=== PATIENT | female | born 1975 | race Caucasian/White ===

== ENCOUNTER 2020-12-02 16:48 | Outpatient (CLI) | payer OTHER, SELFPAY ==
--- NOTE | 2020-12-02 17:18 | XR_ITS ---
WS: [id number] Exam: XR chest 2V* [id number] Date/Time of Exam: 12/02/2020 5:46 PM Reason For Exam: DYSPNEA Comparison 01/14/2011. Findings: The lungs are clear and fully expanded. Costophrenic angles are sharp. No infiltrates. Bronchovascula r relief appears normal. Cardiac silhouette is unremarkable. Bony elements are intact. XR/XR chest 2V* [id number] IMPRESSION: Unremarkable chest radiograph.
== END 2020-12-02 16:49 | disposition home or self-care (01) ==
PROVIDERS: PCP Family Medicine; Visit Provider Family Medicine
DX: R06.00 Dyspnea, unspecified (principal)
CPT/HCPCS: 71046

== ENCOUNTER → 2021-04-23 08:11 | Outpatient (BNVA) | payer OTHER, SELFPAY | PROVIDERS: PCP Family Medicine; Referring Provider Family Medicine; Visit Provider Podiatrist Foot & Ankle Surgery | DX: M25.572 Pain in left ankle and joints of left foot (principal); M21.612 Bunion of left foot; M21.611 Bunion of right foot; M77.32 Calcaneal spur, left foot | CPT/HCPCS: 73630 ==

== ENCOUNTER → 2022-04-27 08:25 | Outpatient (BNVA) | payer OTHER, SELFPAY | PROVIDERS: PCP Family Medicine; Visit Provider Family Medicine | DX: Z00.00 Encounter for general adult medical examination without abnormal findings (principal) | CPT/HCPCS: 80053; 80061 ==

== ENCOUNTER 2022-05-07 10:12 | Outpatient (CLI) | payer OTHER, SELFPAY ==
--- NOTE | 2022-05-07 10:20 | MM_ITS ---
WS: [id number] Exam: [place] [id number] Date/Time of Exam: 05/07/2022 10:32 AM Reason For Exam: SCREENING VIEWS: MLO and CC views both breasts. 3D digital tomosynthesis is also included in this exam. Comparison made with prior exam of . Findings: There was no sign of mass, architectural distortion or suspicious calcification in either breast. He terogeneously dense MM/[place] [id number] Impression: BI-RADS: 2-Benign FOLLOW-UP: 1 Year Follow-up This mammogram was also analyzed by the Computer Aided Detection System [employer] Commissioned Sales Associate.
== END 2022-05-07 10:13 | disposition home or self-care (01) ==
PROVIDERS: PCP Family Medicine; Visit Provider Family Medicine
DX: Z12.31 Encounter for screening mammogram for malignant neoplasm of breast (principal)
CPT/HCPCS: 77063; 77067

== ENCOUNTER 2022-10-16 15:58 | Outpatient (CLI) | payer OTHER, SELFPAY ==
--- NOTE | 2022-10-16 16:00 | MR_ITS ---
WS: [id number] MRI LEFT KNEE NONCONTRAST TECHNIQUE: Axial PD, coronal PD fat sat, coronal PD, sagittal PD, and sagittal PD fat-sat images obta ined. CLINICAL INFORMATION: persistent left knee pain COMPARISON: None. FINDINGS: Distal quadriceps and patella tendons are intact. Normal ACL and PCL. Moderate chondromalacia patella . Normal medial and lateral patellar retinaculum. Grade III chondromalacia involving the medial and l ateral joint compartments advanced for patient this age. No subchondral edema. Normal lateral meniscus. Horizontal tear involving the posterior horn medial meniscus extending to th e articular surface. Blunting of the posterior horn. Meniscal tear extends to the meniscal root. Grade III chondromalacia patella. No subchondral edema. Normal medial and lateral patellar retinaculu m. Normal popliteus. Normal lateral collateral ligament. Normal biceps femoris. Small amount of fluid and edema deep to the medial collateral ligament consistent with grade 1-2 injury. MCL appears intac t. Parameniscal cysts along the posterior horn medial meniscus. Intercondylar ganglion cyst along the PCL. MR/MR knee LT wo con* [id number] IMPRESSION: 1. Normal ACL and PCL. 2. Horizontal tear involving the posterior horn medial meniscus extending to t he periphery and meniscal root. Associated loculated appearing meniscal cysts. 3. Grade III chondromalacia patella. No subchondral edema. 4. Fluid and edema along the MCL compatible with grade 1-2 injury. 5. Lobulated intercondylar ganglion cyst along the PCL measuring 10 x 7 mm. 6. Grade III chondromalacia involving the medial and lateral joint compartment s advanced for patient this age. No subchondral edema. Outbridge grading: grade III: partial-thickness cartilage loss with focal ulcer ation
== END 2022-10-16 15:59 | disposition home or self-care (01) ==
PROVIDERS: PCP Family Medicine; Visit Provider Family Medicine
DX: S83.242A Other tear of medial meniscus, current injury, left knee, initial encounter (principal); X58.XXXA Exposure to other specified factors, initial encounter; M22.42 Chondromalacia patellae, left knee; R60.0 Localized edema; M67.462 Ganglion, left knee
CPT/HCPCS: 73721

== ENCOUNTER → 2022-11-13 06:57 | Outpatient (BNVA) | payer OTHER, SELFPAY | PROVIDERS: PCP Family Medicine; Referring Provider Family Medicine; Visit Provider Student in an Organized Health Care Education/Training Program | DX: S83.242A Other tear of medial meniscus, current injury, left knee, initial encounter (principal); M94.262 Chondromalacia, left knee; M25.862 Other specified joint disorders, left knee; X58.XXXA Exposure to other specified factors, initial encounter | CPT/HCPCS: 73560; 73565 ==

== ENCOUNTER 2022-12-15 06:21 | Day surgery (SDC) | payer OTHER, SELFPAY ==
[2022-12-14 12:28] VITALS: BMI 31.3
[2022-12-15] VITALS (9 sets, daily range): BP systolic 116–153; BP diastolic 71–92; PULSE 67–101; RESP 12–19; TEMP 36.2–36.6; O2SAT 96–100
[2022-12-15] MEDS: sodium chloride 0.9% 1,000 ML 30 ML IV (06:52)
[2022-12-15] MEDS: acetaminophen 1,000 MG/100 ML PIGGYBACK 400 MG IV (06:53)
[2022-12-15] MEDS: ketorolac 30 mg/mL INJ IVP (06:54)
--- NOTE | 2022-12-15 07:09 | W.PM.OPSFHP ---
Same Day Surgery H&P Indication for Procedure/HPI DATE OF PROCEDURE: December 15, 2022 CHIEF COMPLAINT/INDICATIONFOR SURGICAL PROCEDURE: Left knee pain medial meniscus tear cyst, and chondromalacia Sustained a left knee injury. She has failed conservative treatment with cortisone back in the summer her pain is returned she has continued periods of instability as well as mechanical symptoms. PREOP DIAGNOSIS: Left knee, medial meniscus tear, cyst, chondromalacia PLANNED PROCEDURE: Operation Date: 12/15/22 08:00 Proposed Procedures p left knee D&S scope with medial meniscectomy vs repair & cyst decompression?69681 and [id number],S83.242A, M94.262(Left) - Hung Parham DO s Meniscectomy(Left) - Hung Parham DO Medications/Allergies* Home Medications Medication Instructions Recorded Confirmed Type No Known Home Medications 11/13/22 11/13/22 History Allergies/Adverse Reactions Allergy/AdvReac Type Severity Reaction Status Date / Time codeine Allergy Mild hives/rash/ Verified 12/15/22 06:39 haulucinati ons Current Medications: Generic Name Dose Route Start Last Admin Trade Name Freq PRN Reason Stop Dose Admin Sodium Chloride 1,000 mls @ 30 mls/hr 12/15/22 06:30 12/15/22 06:52 Sodium Chloride 0.9% IV 12/16/22 06:29 30 mls/hr .Q24H MYRIAM Administration Pertinent History/Comorbid Conditions* Medical History (Updated 11/13/22 @ 07:46 by Hung Parham DO) Chondromalacia, left knee Knee joint cyst Social History Smoking and tobacco status: never smoked Second hand smoke exposure: No Alcohol intake: unknown Adopted: No Caregiver/support person: No Lives independently: Yes Household members: family Housing: House Marital status: Unknown Pets and animals: Yes Pertinent Exam Findings alert, operative site marked and procedure specific exam findings There are no gross deformities of the hips or ankles. The range of motion of both hips and ankles are normal and no tenderness to palpation. Both knees show no effusion bilaterally. There is 5/5 flexion and extension of the knees against resistance. Gait was assessed and is normal. There is discrete tenderness to palpation over the medial compartment of the left knee. There is pain that is reproduced with McMurrays test, but no palpable click. There is no tenderness with patella mobilization or over the lateral compartment.? There is mild crepitus on patellar range of motion. There is a negative lachmans test and both knees are stable to varus and valgus stress testing. There is a negative anterior and posterior drawer. There is no significant varus or valgus malalignment. Recommendations Surgery/Procedure today Other Plans: OR today for left knee diagnostic and surgical arthroscopy with partial medial meniscectomy versus repair, cyst decompression, chondroplasty. She understands risk benefits complication alternatives surgical nonsurgical treatment options. Understanding risk of surgery she elects to proceed with surgery today. All questions answered. Coding Level of Care Code Acute Code for Chg Fwd
--- NOTE | 2022-12-15 07:21 | ANES.PREANE2 ---
Pre-Anesthetic Assessment Height/Weight: Height 1.7 m Weight 90.718 kg Temp Pulse Resp BP Pulse Ox O2 Del Method 97.5 F L 67 17 142/84 97 12/15/22 06:40 12/15/22 06:40 12/15/22 06:40 12/15/22 06:40 12/15/22 06:40 12/15/22 06:40 Preop Diagnosis: Left knee, medial meniscus tear, cyst, chondromalacia Operation Date: 12/15/22 08:00 Proposed Procedures p left knee D&S scope with medial meniscectomy vs repair & cyst decompression?48613 and 44578,S83.242A, M94.262(Left) - Hung Parham DO s Meniscectomy(Left) - Hung Parham DO Familial anesthetic complications: None Was Beta Dunia taken within 24 hours: N/A Was Clonidine taken within 24 hours: N/A Last intake: Intake Last Liquid Date 12/14/22 Last Liquid Time 20:00 Last Solid Date 12/14/22 Last Solid Time 20:00 Social No alcohol and No tobacco Exam alert, oriented x 3, clear to auscultation bilaterally and regular rate & rhythm Airway Mallampati: Class II Dentition: full History/ROS No significant complaints Anesthetic Plan ASA status: 1 Anesthesia: General and Regional (specify below) Risk of > 500 ml blood loss (7ml/kg in children): No Medications/Allergies Home Medications Medication Instructions Recorded Confirmed Last Taken Type No Known Home Medications 11/13/22 11/13/22 Unknown History Allergies Allergy/AdvReac Type Severity Reaction Status Date / Time codeine Allergy Mild hives/rash/ Verified 12/15/22 06:39 haulucinati ons Current Medications Generic Name Dose Route Start Last Admin Trade Name Freq PRN Reason Stop Dose Admin Sodium Chloride 1,000 mls @ 30 mls/hr 12/15/22 06:30 12/15/22 06:52 Sodium Chloride 0.9% IV 12/16/22 06:29 30 mls/hr .Q24H MYRIAM Administration PFSH Anesthesia Medical History (Updated 11/13/22 @ 07:46 by Hung Parham DO) Chondromalacia, left knee Knee joint cyst Social History Smoking and tobacco status: never smoked Second hand smoke exposure: No Alcohol intake: unknown Adopted: No Caregiver/support person: No Lives independently: Yes Household members: family Housing: House Marital status: Unknown Pets and animals: Yes Female Reproductive History Date of last menstrual period: 11/16/22 Data Anesthesia Cardiac Studies: No Data to Display
--- NOTE | 2022-12-15 07:33 | ANES.PROC ---
Anesthesia Procedures Procedure/Date: 12/15/22 Nerve Block ^: Nerve Block 1: Main Anesthesia: general anesthesia Time Out Performed: No Consent: requested by attending/covering physician, from patient, risks and benefits reviewed and patient agrees to proceed Nerve block location: adductor canal (L) Anesthesia monitors applied: pulse oximetry, EKG, BP cuff and oxygen Nerve block position: supine Anesthetic Used: ropivicaine 0.5% (30 ml) and with decadron (4 mg) Ultrasound used to: recognize landmarks and visualize and ID femerol nerve Nerve Stimulator Used?: No Interscalene/Femoral BLK: 4 stimuplex 21 g needle used for position and inplane approach, visualize local anesthetic spread and no vascular puncture identified Injection: neg aspiration of heme Patient Tolerated Procedure: well Complications: none
--- NOTE | 2022-12-15 07:37 | SUR.PREOP ---
0725-Block was performed by Dr Guerra in OPS to patient's left knee. Patient tolerated well.
[2022-12-15] MEDS: ceFAZolin 2,000 MG in sodium chloride 0.9% (plus) 50 ML 100 MG IV (09:21)
[2022-12-15] MEDS: lidocaine-epi 2% 20 mL INJ 40 ML INJECTION (10:09)
--- NOTE | 2022-12-15 10:17 | PM.OP2 ---
Brief Operative Note Date of procedure: 12/15/22 Pre-op diagnosis: Left knee medial meniscus tear, PCL cyst, chondromalacia Post-op diagnosis: other (Left knee medial meniscus tear, chondromalacia patellofemoral, lateral, medial compartments) Procedure Done: Left knee diagnostic and surgical arthroscopy with partial medial meniscectomy Left knee diagnostic and surgical arthroscopy extensive synovectomy of medial, lateral, patellofemoral compartments Left knee diagnostic and surgical arthroscopy chondroplasty medial and patellofemoral compartments Left knee diagnostic and surgical arthroscopy lateral femoral condyle microfracture Surgeon: Hung Parham Estimated blood loss (mL): 5 Complications: None Post-op Plan: Patient taken to PACU in stable condition recovering well dressing on in place clean dry and intact receive appropriate discharge structure as well as pain medication and DVT prophylaxis of aspirin. Plan to be partial weightbearing 30 to 50% for the next 2 weeks. Full range of motion of the left knee. We will follow-up with me in the office in 2 weeks. Patient understands agrees with current plan. Questions answered. Contact the office for any questions. Condition: stable Disposition: same day Coding Level of Care Code Acute Code for Catrinag Cristhian
--- NOTE | 2022-12-15 10:19 | P.PCN_ITS ---
PACU note Narrative: Patient taken to PACU in stable condition recovering well dressing on in place clean dry and intact distal pulses are palpable toes warm well- perfused brisk capillary refill less than 2 seconds patient able to wiggle toes plantarflex dorsiflex ankle sensation tact light touch distally. Exam: awake Disposition: discharged
--- NOTE | 2022-12-15 10:19 | PM.OP ---
Operative Report Date of procedure: December 15, 2022 Pre-op diagnosis: Preop Diagnosis Left knee, medial meniscus tear, cyst, chondromalacia Post-op diagnosis: Left knee medial meniscus tear Left knee medial compartment chondromalacia grade 2?3 Left knee extensive synovitis medial lateral patellofemoral compartments Left knee lateral compartment chondromalacia small focal area of grade 3 lateral femoral condyle and rest of compartment grade 1?2 Left knee patellofemoral compartment grade 2-3 chondromalacia Procedure done: Left knee diagnostic and surgical arthroscopy with partial medial meniscectomy Left knee diagnostic and surgical arthroscopy with medial and patellofemoral compartment chondroplasties Left knee diagnostic and surgical arthroscopy extensive synovectomy of medial lateral and patellofemoral compartments Left knee diagnostic and surgical arthroscopy with lateral femoral condyle microfracture Surgeon: Hung Parham DO Estimated blood loss: 5 mL No tourniquet IV fluids: 900 mL Complications: None Findings: See operative report narrative Condition: stable Disposition: same day Brief History: Patient presented to my office in the outpatient setting for evaluation of left knee pain. She presented with an MRI findings consistent with below IMPRESSION: ? 1.? Normal ACL and PCL. 2.? Horizontal tear involving the posterior horn medial meniscus extending to the periphery and meniscal root. Associated loculated appearing meniscal cysts. 3.? Grade III chondromalacia patella. No subchondral edema. 4.? Fluid and edema along the MCL compatible with grade 1-2 injury. 5.? Lobulated intercondylar ganglion cyst along the PCL measuring 10 x 7 mm. 6.? Grade III chondromalacia involving the medial and lateral joint compartments advanced for patient this age. No subchondral edema. ? Outbridge grading: grade III: partial-thickness cartilage loss with focal ulceration We talked in detail about her treatment options as far as nonoperative and operative intervention. We talked about the risk benefits complication alternatives to each treatment option. Ultimately given the concern for the extension of the meniscal tear into the meniscal root her younger age and goals of trying to preserve cartilage and better function of meniscus we talked about surgical intervention of the left knee diagnostic and surgical arthroscopy with partial medial meniscectomy versus repair, chondroplasty and possible cyst decompression. Understanding the risks with surgery this point time she elects proceed. All questions answered. Procedure: Procedure: Patient seen and evaluated in the preoperative holding area.? Consent was reviewed and signed with patient.? Correct extremity was then marked.? Patient seen evaluated Anesthesia Department once cleared for surgery patient was taken back to the operative suite.? Patient was transported onto the OR table in supine position.? All bony prominences well-padded patient was appropriate secured to the bed.? Once appropriately anesthetized a nonsterile tourniquet was applied to the left thigh.? The left lower extremity was then prepped and draped in standard orthopedic fashion.? Final timeout performed.? Patient received appropriate preoperative antibiotics. Patient received local anesthetic of lidocaine with epinephrine into the joint as well as around the portal sites.? No tourniquet was inflated during this case. A standard 2 portal vertical incision diagnostic and surgical arthroscopy of the left knee was performed in standard fashion.? Small stab incision made in the inferolateral portal introduced trocar and arthroscope into the suprapatellar pouch.? Suprapatellar pouch was subsequently visualized and found to have significant synovitis but no loose bodies.? Patient had noticeable significant infrapatellar fat pad and thickening hypertrophic within the patellofemoral compartment. ?The medial gutter was free of loose bodies I then introduced the arthroscope into the medial compartment.? Within the medial compartment I then established my inferior medial working portal utilizing spinal needle outside in technique.? Once established I then visualized our articular cartilage of the medial compartment with a valgus stress.? Patient was found to have grade 2?3 chondromalacia throughout the medial compartment most pronounced on the femoral condyle.? Next I inspected the meniscus.? With an arthroscopic probe arthroscopic probe was utilized to visual? all aspects of the meniscus.? Meniscal root was found to be intact however patient was found to have a complex flap tear of the posterior horn of the medial meniscus.? Given this would not be a good candidate for repair I subsequently utilizing basket forceps as well as arthroscopic shaver completed a partial medial meniscectomy to stable meniscal tissue.? I then utilized a thermal wand to anneal the edges to complete my partial medial meniscectomy. Next a introduced the arthroscope to the intercondylar notch.? ACL and PCL were intact.? Patient had significant thickening of the infrapatellar fat pad spanning into the medial and lateral compartments.? I then performed an extensive synovectomy with the arthroscopic shaver of the patellofemoral medial and lateral compartments as well as the intercondylar notch. Advance the scope into the retrocruciate space and no loose bodies were found as well as no visible access to the PCL cyst as result this was left alone and no cyst decompression was Performed. Next I introduced the arthroscope into the lateral compartment the lateral compartment was found to have grade I and II chondromalacia throughout except a focal less than 1 cm grade III chondromalacia defect was noted. I subsequently utilized the arthroscopic shaver to debride the weightbearing surface of this defect to stable articular cartilage tissue and then subsequently performed a microfracturing of this area for bone marrow stimulation and healing. The meniscus was inspected and found to be intact with no tear. Next of the arthroscope was placed into the lateral gutter and this was free of loose bodies.? Finally I reintroduced the arthroscope into the patellofemoral compartment.? The patellofemoral was found to have grade 2-3 chondromalacia.? I did have grade 3 underneath the patella and a thermal wand and shaver was used to perform a chondroplasty of the patella to stable articular tissue.? I utilized the arthroscopic shaver and thermal wand to perform chondroplasty of the trochlea as well. This was all performed to stable articular tissue. Next I used the arthroscopic shaver to complete my extensive synovectomy and debridement of the infrapatellar thickened and hypertrophic fat pad to have complete space of the patellofemoral compartment on the medial aspect.? Next I then switched the arthroscope to the medial working portal and visualized the extent extensive synovitis laterally and then introduced the arthroscopic shaver and completed my synovectomy.? This completed patient's diagnostic and surgical arthroscopy.? All fluid was suctioned from the joint.? Once again hemostasis was satisfactory.? All instruments were withdrawn.? Portal sites were closed with interrupted nylon suture.? Dressed with Xeroform 4 x 4's ABD Curlex and Randall wrap.? Patient was then subsequently awakened from anesthesia and taken to PACU in stable condition. Disposition: Patient taken to PACU in stable condition recovering well.? Will receive appropriate discharge structure as well as pain medication postoperatively as well as daily aspirin for DVT prophylaxis.? We will have patient follow-up with us in the office in 2 weeks.? We will keep patient partial weightbearing 30 to 50% because of microfracturing. Patient understands and agrees with current plan.? All questions answered.
--- NOTE | 2022-12-15 10:21 | PC.NURSE ---
awake. Oral airway removed
--- NOTE | 2022-12-15 14:35 | ANE.PACU2 ---
Inpatient post-anesthesia follow up: Airway intact: Yes Vital signs: Temperature 97.7 F Pulse Rate 95 Respiratory Rate 18 Blood Pressure 132/92 Pulse Oximetry 100 Oxygen Delivery Me thod Room Air Oxygen Flow Rate 8 Fraction of Inspir ed Oxygen Hydration adequate: Yes Nausea and vomiting: No Pain level: 1 Mental status: Baseline
[2022-12-16 09:33] LABS: OR HCG Qualitative Urine Negative (Negative)
== END 2022-12-15 11:25 | disposition home or self-care (01) ==
PROVIDERS: Anesthesiology; PCP Family Medicine; Visit Provider Student in an Organized Health Care Education/Training Program
PROC: (CPT 29870; principal; 2022-12-15 08:00)
PROC: (CPT 29876; 2022-12-15 08:00)
DX: S83.232A Complex tear of medial meniscus, current injury, left knee, initial encounter (principal); M94.262 Chondromalacia, left knee; M65.862 Other synovitis and tenosynovitis, left lower leg; M25.862 Other specified joint disorders, left knee; X58.XXXA Exposure to other specified factors, initial encounter
CPT/HCPCS: 29876; 29879; 29881; 81025; 84703; J0131; J0690; J1100; J1885; J2250; J2405; J2704; J2795; J3010; J7030

== ENCOUNTER 2022-12-30 00:06 | Emergency (ER) | payer OTHER, SELFPAY ==
[2022-12-30 00:18] VITALS: BP 153/88; PULSE 79; RESP 16; O2SAT 97; BMI 31.3
--- NOTE | 2022-12-30 00:23 | ED_ITS ---
HPI - General Adult General: Chief complaint: Urogenital-Female Stated complaint: chills; uti sx Time Seen by Provider: 12/30/22 00:11 Source: patient Mode of arrival: ambulatory Limitations: no limitations History of Present Illness: 47-year-old female states she has had some lower abdominal pain over the last 48 hours she states it is mild nature roughly 2-3 out of 10. She states she woke up tonight with some chills along with some dysuria concerned she has a UTI she did have a recent meniscal repair 2 weeks ago. Denies any vomiting or diarrhea denies any worsening proving factors. Associated symptoms: Deny chest pain, dyspnea, headache(s) or rash Review of Systems Const: Denies: fever(s), chills, body aches or change in appetite Eyes: Denies: blurry vision or eye discomfort ENMT: Denies: throat pain or dental pain Card: Denies: chest pain Resp: Denies: dyspnea GI: Reports: abdominal pain : Reports: dysuria Musc: Denies: neck pain or back pain Skin/Breast: Denies: rash Neuro: Denies: headache(s) Psych: Denies: depression [place]/Lymph: Denies: easy bruising All/Imm: Denies: urticaria PFSH ED PFSH: Medical History Chondromalacia, left knee Knee joint cyst Social History Smoking and tobacco status: never smoked Second hand smoke exposure: No Alcohol intake: unknown Adopted: No Caregiver/support person: No Lives independently: Yes Household members: family Housing: House Marital status: Unknown Pets and animals: Yes Physical Exam Const: COMMON NORMALS: no acute distress, patient oriented x3 and healthy ap pearing HENMT: COMMON NORMALS: normocephalic and atraumatic HEAD & SCALP: normocephalic and atraumatic Eye: COMMON NORMALS: Equal, round and reactive pupils present and EOMs intact bilaterally PUPIL: Yes Equal, round and reactive pupils present Neck/C-Spine: COMMON NORMALS: full ROM and supple Chest: COMMONS NORMALS: normal inspection of the chest and normal palpation of entire chest wall Resp: COMMON NORMALS: normal respiratory effort, No retractions, No use of accessory muscles and clear to auscultation bilaterally AUSCULTATION: clear to auscultation bilaterally Cardio: COMMON NORMALS: regular rate, regular rhythm and No murmurs present (Cardio) RATE: regular rate RHYTHM: regular rhythm GI: COMMON NORMALS: Normal to inspection, nondistended, normoactive bowel sounds present, Soft to palpation, non-tender and no masses PALPATION: Yes Soft to palpation Extremity: COMMON NORMALS: normal to inspection and full ROM Neuro: COMMON NORMALS: patient oriented x3, moves all extremities and no focal motor deficits Psych: COMMON NORMALS: mental status grossly normal, Normal thought process pr esent and cooperative THOUGHT PROCESS: Normal thought process present Skin: COMMON NORMALS: no rashes or lesions noted and no wounds GENERAL SKIN EXAM: no rashes or lesions noted Course Vital Signs: Vital signs: Vital Signs Temperature 97.9 F 12/30/22 00:49 Pulse Rate 75 12/30/22 00:49 Respiratory Rate 14 12/30/22 00:49 Blood Pressure 142/97 12/30/22 00:49 Pulse Oximetry 98 12/30/22 00:49 Oxygen Delivery Me thod 12/30/22 00:18 MDM - General Adult Medical Decision Making Patient presents here with urinary tract infection her pains improved she has no abdominal tenderness on exam no signs of a kidney stone white count is normal we will give her IV dose antibiotics along with Keflex she is to follow-up PCP and return if worsening she understands agrees to plan. Lab Data 12/30/22 00:44 12/30/22 00:44 Laboratory Results WBC 8.9 10^3/uL (4.0-10.0) 12/30/22 00:44 RBC 4.42 10^6/uL (4.1-5.3) 12/30/22 00:44 Hgb 13.3 g/dL (11.5-15.3) 12/30/22 00:44 Hct 39.4 % (37.0-47.0) 12/30/22 00:44 MCV 89.1 fl (81-99) 12/30/22 00:44 MCH 30.1 pg (28.0-34.0) 12/30/22 00:44 MCHC 33.8 g/dL (30.0-36.0) 12/30/22 00:44 RDW 12.1 % (12.1-15.1) 12/30/22 00:44 Plt Count 256 10^3/cmm (130-400) 12/30/22 00:44 MPV 11.1 fL (7.4-10.4) H 12/30/22 00:44 Neut % (Auto) 71.1 % 12/30/22 00:44 Lymph % (Auto) 19.8 % 12/30/22 00:44 [place] % (Auto) 7.5 % 12/30/22 00:44 Eos % (Auto) 1.1 % 12/30/22 00:44 Baso % (Auto) 0.4 % 12/30/22 00:44 Neut # (Auto) 6.33 10^3/uL (1.8-7.7) 12/30/22 00:44 Lymph # (Auto) 1.8 10^3/uL (0.8-4.8) 12/30/22 00:44 [place] # (Auto) 0.7 10^3/uL (0.2-0.9) 12/30/22 00:44 Eos # (Auto) 0.1 10^3/uL (0.0-0.8) 12/30/22 00:44 Baso # (Auto) 0.0 10^3/uL (0.0-0.1) 12/30/22 00:44 Nucleated RBC % (auto) 0 % 12/30/22 00:44 Nucleated RBCs # 0.0 /100WBC 12/30/22 00:44 Sodium 140 mmol/L (136-145) 12/30/22 00:44 Potassium 3.8 mmol/L (3.5-5.1) 12/30/22 00:44 Chloride 106 mmol/L (98-107) 12/30/22 00:44 Carbon Dioxide 23 mmol/L (22-29) 12/30/22 00:44 Anion Gap 14.8 (5-19) 12/30/22 00:44 BUN 19 mg/dL (6-20) 12/30/22 00:44 Creatinine 0.6 mg/dL (0.5-0.9) 12/30/22 00:44 GFR Calculation 108.1 mL/min (90-130) 12/30/22 00:44 Glucose 109 mg/dL (65-115) 12/30/22 00:44 Calculated Osmolality 293 mOsm/kg (285-295) 12/30/22 00:44 Calcium 8.9 mg/dL (8.5-10.5) 12/30/22 00:44 Total Bilirubin 0.5 mg/dL (0.15-1.2) 12/30/22 00:44 AST 23 U/L (0-32) 12/30/22 00:44 ALT 34 U/L (0-33) H 12/30/22 00:44 Alkaline Phosphatase 64 U/L (35-105) 12/30/22 00:44 Total Protein 6.7 g/dL (6.6-8.7) 12/30/22 00:44 Albumin 4.0 g/dL (3.5-5.2) 12/30/22 00:44 Globulin 2.7 g/dL (1.3-4.6) 12/30/22 00:44 Lipase 34 U/L (13-60) 12/30/22 00:44 HCG, Qual Negative (Negative) 12/30/22 00:33 Urine Color Yellow (Yellow) 12/30/22 00:33 Urine Appearance Sl hazy (CLEAR) A 12/30/22 00:33 Urine pH 5 (5-7) 12/30/22 00:33 Ur Specific [place] 1.020 (1.005-1.030) 12/30/22 00:33 Urine Protein Neg (Negative) 12/30/22 00:33 Urine Glucose (UA) Norm (Normal) 12/30/22 00:33 Urine Ketones Negative (Negative) 12/30/22 00:33 Urine Blood 3+ (Negative) H 12/30/22 00:33 Urine Nitrate Negative (Negative) 12/30/22 00:33 Urine Bilirubin Neg (Negative) 12/30/22 00:33 Urine Urobilinogen Norm mg/dL (Negative) 12/30/22 00:33 Ur Leukocyte Esterase 2+ (Negative) H 12/30/22 00:33 Urine RBC 50-80 /hpf (0-2) H 12/30/22 00:33 Urine WBC >100 /hpf (0-5) H 12/30/22 00:33 Ur Squamous Epith Cells 15-25 /hpf (0-5) H 12/30/22 00:33 Amorphous Sediment Not Reportable 12/30/22 00:33 Urine Bacteria 3+ /hpf (NONE) H 12/30/22 00:33 Discharge Plan Discharge Patient Disposition: Home Clinical Impression: Acute cystitis Condition: Stable Prescriptions: New cephalexin 500 mg capsule 500 mg PO TID 7 Days Qty: 21 0RF No Action meloxicam 15 mg tablet 15 mg PO DAILY Qty: 30 0RF calcium carbonate-vitamin D3 600 mg-10 mcg (400 unit) Tablet 1 ea PO BID 30 Days Qty: 60 0RF Discharge Orders: Discharge ED (Routine); Ordered 12/30/22 Ordered By: Juan F Morin Referrals: Jesus Love MD [Primary Care Provider] - 1-3 days Discharge Diet: Advance as tolerated Discharge Activity: Resume usual activity Patient Instructions: Urinary Tract Infection in Women (ED) Coding Level of Care Code ED Traffic Checker for Tessie Morrow
[2022-12-30] MEDS: sodium chloride 0.9% 1,000 ML 999 ML IV (00:44)
[2022-12-30 00:49] VITALS: BP 142/97; PULSE 75; RESP 14; TEMP 36.6; O2SAT 98
[2022-12-30 00:52] LABS: Basophils % 0.4 %; Eosinophils # 0.1 10^3/uL (0.0-0.8); Eosinophils % 1.1 %; Hematocrit 39.4 % (37.0-47.0); Hemoglobin 13.3 g/dL (11.5-15.3); Lymphocytes # 1.8 10^3/uL (0.8-4.8); Lymphocytes % 19.8 %; Mean Corpuscular HGB Conc 33.8 g/dL (30.0-36.0); Mean Corpuscular Hemoglobin 30.1 pg (28.0-34.0); Mean Corpuscular Volume 89.1 fl (81-99); Mean Platelet Volume 11.1 fL (7.4-10.4); Monocytes # 0.7 10^3/uL (0.2-0.9); Monocytes % 7.5 %; Neutrophils # 6.33 10^3/uL (1.8-7.7); Neutrophils % 71.1 %; Nucleated Red Blood Cells % 0 %; Platelet Count 256 10^3/cmm (130-400); Red Blood Count 4.42 10^6/uL (4.1-5.3); Red Cell Distribution Width 12.1 % (12.1-15.1); White Blood Count 8.9 10^3/uL (4.0-10.0)
[2022-12-30 01:09] LABS: Alanine Aminotransferase 34 U/L (0-33); Alkaline Phosphatase 64 U/L (35-105); Anion Gap 14.8 (5-19); Aspartate Amino Transferase 23 U/L (0-32); Blood Urea Nitrogen 19 mg/dL (6-20); Calcium 8.9 mg/dL (8.5-10.5); Carbon Dioxide 23 mmol/L (22-29); Chloride 106 mmol/L (98-107); Globulin 2.7 g/dL (1.3-4.6); Glomerular Filtration Rate 108.1 mL/min (90-130); Glucose 109 mg/dL (65-115); Lipase 34 U/L (13-60); Osmolality Calculated 293 mOsm/kg (285-295); Potassium 3.8 mmol/L (3.5-5.1); Sodium 140 mmol/L (136-145); Total Bilirubin 0.5 mg/dL (0.15-1.2); Total Protein 6.7 g/dL (6.6-8.7)
[2022-12-30 01:21] LABS: HCG Qualitative Urine. Negative (Negative)
[2022-12-30 01:43] LABS: Bilirubin Urine Neg (Negative); Blood Urine 3+ (Negative); Glucose Urine UA Norm (Normal); Ketones Urine Negative (Negative); Nitrate Urine Negative (Negative); Protein Urine Neg (Negative); Urine Appearance SL Hazy (CLEAR); Urine Color Yellow (Yellow); Urobilinogen Urine Norm (Negative); pH Urine 5 (5-7)
[2022-12-30 01:44] LABS: Add Urine Microscopic? YES; Leukocyte Esterase Urine 2+ (Negative)
[2022-12-30 01:52] LABS: Bacteria Urine 3+ /hpf; Squamous Epithelial Cell Urine 15-25 /hpf (0-5); WBC Urine >100 /hpf (0-5)
[2022-12-30 01:54] LABS: RBC Urine 50-80 /hpf (0-2)
[2022-12-30] MEDS: cefTRIAXone 1,000 MG in sodium chloride 0.9% (plus) 50 ML 100 MG IV (02:12)
[2022-12-30 02:52] VITALS: BP 126/91; PULSE 80; RESP 18; O2SAT 99
== END 2022-12-30 02:53 | disposition home or self-care (01) ==
PROVIDERS: Emergency Provider Emergency Medicine; PCP Family Medicine
DX: N30.00 Acute cystitis without hematuria (principal)
CPT/HCPCS: 80053; 81001; 81025; 83690; 85025; 96361; 96365; 99284; J0696; J7030

== ENCOUNTER 2023-01-06 06:00 | Outpatient (RCR) | payer OTHER, SELFPAY | END 2023-01-08 23:59 | disposition home or self-care (01) | LOC: SPT 06:00 | PROVIDERS: Visit Provider Student in an Organized Health Care Education/Training Program | DX: Z47.89 Encounter for other orthopedic aftercare (principal) | CPT/HCPCS: 97110; 97161 ==

== ENCOUNTER 2023-01-09 06:00 | Outpatient (RCR) | payer OTHER, SELFPAY | END 2023-02-07 23:59 | disposition home or self-care (01) | LOC: SPT 06:00 | PROVIDERS: Visit Provider Student in an Organized Health Care Education/Training Program | DX: Z47.89 Encounter for other orthopedic aftercare (principal) | CPT/HCPCS: 97110; 97140; 97164 ==

== ENCOUNTER → 2023-04-12 10:47 | Outpatient (BNVA) | payer OTHER, SELFPAY | PROVIDERS: PCP Family Medicine; Visit Provider Student in an Organized Health Care Education/Training Program | DX: M94.262 Chondromalacia, left knee (principal); M17.12 Unilateral primary osteoarthritis, left knee | CPT/HCPCS: 73560; 73565 ==

== ENCOUNTER 2023-05-04 16:04 | Outpatient (CLI) | payer OTHER, SELFPAY | END 2023-05-04 16:05 | disposition home or self-care (01) | LOC: SPT 16:05 | PROVIDERS: PCP Family Medicine; Visit Provider Student in an Organized Health Care Education/Training Program | DX: Z46.89 Encounter for fitting and adjustment of other specified devices (principal); M25.562 Pain in left knee; M76.892 Other specified enthesopathies of left lower limb, excluding foot | CPT/HCPCS: 97760; L1851 ==

== ENCOUNTER → 2023-05-07 09:48 | Outpatient (BNVA) | payer OTHER, SELFPAY | PROVIDERS: PCP Family Medicine; Visit Provider Family Medicine Adult Medicine | DX: R39.9 Unspecified symptoms and signs involving the genitourinary system (principal); R33.9 Retention of urine, unspecified | CPT/HCPCS: 81000 ==

== ENCOUNTER → 2023-05-11 08:56 | Outpatient (BNVA) | payer OTHER, SELFPAY | PROVIDERS: PCP Family Medicine; Visit Provider Family Medicine | DX: N32.89 Other specified disorders of bladder (principal); N92.0 Excessive and frequent menstruation with regular cycle; R33.9 Retention of urine, unspecified | CPT/HCPCS: 80053; 80061; 84443; 87077; 87086; 87184 ==

== ENCOUNTER → 2023-06-08 15:03 | Outpatient (BNVA) | payer OTHER, SELFPAY | PROVIDERS: PCP Family Medicine; Visit Provider Family Medicine | DX: Z78.9 Other specified health status (principal) | CPT/HCPCS: 87624 ==

== ENCOUNTER → 2023-12-09 14:08 | Outpatient (BNVA) | payer OTHER, SELFPAY | PROVIDERS: PCP Family Medicine; Visit Provider Student in an Organized Health Care Education/Training Program | DX: M17.12 Unilateral primary osteoarthritis, left knee (principal); M94.262 Chondromalacia, left knee | CPT/HCPCS: 73560; 73565 ==

== ENCOUNTER → 2024-02-23 14:28 | Outpatient (BNVA) | payer OTHER, SELFPAY | PROVIDERS: PCP Family Medicine; Visit Provider Clinical Nurse Specialist Adult Health | DX: N92.0 Excessive and frequent menstruation with regular cycle (principal) | CPT/HCPCS: 80053; 82728; 83540; 84443; 85025 ==

== ENCOUNTER 2024-03-08 14:31 | Outpatient (CLI) | payer OTHER, SELFPAY ==
--- NOTE | 2024-03-08 15:15 | US_ITS ---
WS: [id number] US pelv w/transvag [id number] HISTORY: menorrhagia COMPARISON: None available. Uterus: 8.2 cm x 5.3 cm x 4.7 cm. Normal size anteverted uterus. No fibroid or mass. Endometrium: 0.5 cm. Normal. No increased vascularity. No mass. Right ovary: 2.4 cm x 1.4 cm x 2.4 cm. Normal size and vascularity, no cystic or solid masses. Left ovary: 2.3 cm x 1.9 cm x 2.2 cm. Normal size and vascularity, no cystic or solid masses. No free fluid in the cul-de-sac. US/US pelv w/transvag [id number] IMPRESSION: Normal pelvic ultrasound. Normal endometrium.
== END 2024-03-08 14:32 | disposition home or self-care (01) ==
LOC: RAD 14:31
PROVIDERS: PCP Family Medicine; Visit Provider Clinical Nurse Specialist Adult Health
DX: N92.0 Excessive and frequent menstruation with regular cycle (principal)
CPT/HCPCS: 76830; 76856

== ENCOUNTER → 2024-04-03 11:08 | Outpatient (BNVA) | payer OTHER, SELFPAY | PROVIDERS: PCP Family Medicine; Referring Provider Clinical Nurse Specialist Adult Health; Visit Provider Nurse Practitioner Women's Health | DX: N95.1 Menopausal and female climacteric states (principal); N92.6 Irregular menstruation, unspecified | CPT/HCPCS: 82652; 82670; 83001; 83002 ==

== ENCOUNTER 2024-09-06 06:00 | Outpatient (CLI) | payer OTHER, SELFPAY | END 2024-09-06 06:01 | disposition home or self-care (01) | LOC: RAD 09-07 11:02 | PROVIDERS: PCP Family Medicine; Visit Provider Nurse Practitioner Women's Health | DX: Z12.31 Encounter for screening mammogram for malignant neoplasm of breast (principal); R92.333 Mammographic heterogeneous density, bilateral breasts; R92.323 Mammographic fibroglandular density, bilateral breasts | CPT/HCPCS: 77063; 77067 ==

== ENCOUNTER 2024-11-16 14:18 | Outpatient (CLI) | payer OTHER, SELFPAY ==
--- NOTE | 2024-11-16 14:32 | MM_ITS ---
WS: [id number] RIGHT 3D TOMOSYNTHESIS DIGITAL MAMMOGRAPHY WITH CAD CLINICAL INFORMATION: N63.10 - Unspecified lump in the right breast, unspecifie... HISTORY: RIGHT breast lump COMPARISON: 09/06/2024 TECHNIQUE: 3 views of the right breast were obtained. FINDINGS: The right breast is composed of heterogeneous fibroglandular density tissue, which can limit the detection of small underlying mass lesions. New increased masslike dense parenchymal tissue with trabecular thickening deep to the nipple extending into the upper outer quadrant. This is new from previous. Associated skin thickening. Masslike density in this area deep to the palpable marker. Ultrasound of this area is pending. Partially visualized enlarged lymph nodes RIGHT axilla ULTRASOUND BREAST RIGHT TECHNIQUE: Ultrasound right breast focused area of concern. CLINICAL INFORMATION: N63.10 - Unspecified lump in the right breast, unspecifie... FINDINGS: Ultrasound 12 o'clock position and upper outer quadrant. Complex fluid collection with internal debris and septations in the area of concern most prominent at the 8 9:00 positions 5 cm from the nipple suspicious for abscess. Lobulated collection measures approximately 5.2 x 2.5 x 1.6 cm in maximum dime nsion. Recommend follow-up after treatment and follow-up to resolution to ensure no underlying lesion. Recommend interval follow-up in 4 to 6 weeks with ultrasound after antibiotic treatment. If worsening symptoms in the interim, consider breast surgery consultation for drainage and sampling MM/MM diag RT tomosynthesis [id number] IMPRESSION: DENSITY: The breasts are heterogeneously dense, which may obscure small masses. BI-RADS: 3 - Probably Benign FOLLOW UP: See Report Message LEFT with the [facility] at 11/16/2024 3:12 PM regarding findi ngs who will follow-up with patient. Dr. Sauceda currently out of the office. Recommend follow-up in 4 to 6 weeks with ultrasound after treatment and recomme nd follow-up to resolution..
== END 2024-11-16 14:19 | disposition home or self-care (01) ==
PROVIDERS: PCP Family Medicine; Visit Provider Nurse Practitioner Women's Health
DX: N64.4 Mastodynia (principal); N63.15 Unspecified lump in the right breast, overlapping quadrants; R92.331 Mammographic heterogeneous density, right breast; R92.8 Other abnormal and inconclusive findings on diagnostic imaging of breast; R23.4 Changes in skin texture; R59.0 Localized enlarged lymph nodes
CPT/HCPCS: 76642; 77061; G0279

== ENCOUNTER 2025-01-24 00:25 | Emergency (ER) | payer OTHER, SELFPAY ==
[2025-01-24 00:33] VITALS: BP 143/86; PULSE 66; RESP 14; TEMP 36.5; O2SAT 99
[2025-01-24 00:50] LABS: Bilirubin Urine Negative (Negative); Blood Urine Negative (Negative); Glucose Urine UA Negative (Normal); Ketones Urine Negative (Negative); Leukocyte Esterase Urine Negative (Negative); Nitrate Urine Negative (Negative); Protein Urine Negative (Negative); Urine Appearance Clear (CLEAR); Urine Color Yellow (Yellow); Urobilinogen Urine 0.2 mg/dL (Negative); pH Urine 8.5 (5-7)
[2025-01-24 00:55] LABS: Add Urine Microscopic? YES; Bacteria Urine None Seen /hpf; Hyaline Casts Urine 0-4 /lpf; RBC Urine 0-2 /hpf (0-2); Squamous Epithelial Cell Urine 0-5 /hpf (0-5); WBC Urine 0-5 /hpf (0-5)
[2025-01-24] MEDS: nitrofurantoin SR (BID) 100 mg Capsule PO (01:18)
[2025-01-24 01:57] VITALS: BP 127/68; PULSE 82; RESP 16; O2SAT 99
--- NOTE | 2025-01-24 05:30 | ED_ITS ---
HPI - Female Genitourinary General: Chief complaint: Urogenital-Female Stated complaint: Possible UTI Time Seen by Provider: 01/24/25 00:58 History of Present Illness: Patient is a well-appearing 42-year-old female seen for dysuria and frequency. She states that she feels some pressure in the pelvis and the last time she felt that she had a UTI. She denies risky sexual contact, vaginal discharge, burning, flank pain, fever, nausea, vomiting, and has no other acute complaints. Related Data Previous Rx's ?Medication ?Instructions ?Recorded INFORMATION TECHNOLOGY INSTRUCTOR BRACE-LEFT #1 ea 04/12/23 semaglutide 0.25 mg or 0.5 mg (2 0.25 mg (0.368 mL) MEDELLIN BCUT ONCE #3 10/19/24 mg/3 mL) subcutaneous pen injector mL sulfamethoxazole 800 1 tab PO BID #10 tabs mg-trimethoprim 160 mg tablet (Bactrim DS) estradiol 1 mg tablet See Rx Instructions .Route 0 12/25/24 .COMPLEX #90 tabs progesterone micronized 200 mg See Rx Instructions .Ro [place] 12/25/24 capsule .COMPLEX #90 caps nitrofurantoin 100 mg PO BID 5 days #10 cap s 01/24/25 monohydrate/macrocrystals 100 mg capsule (Macrobid) Allergies Allergy/AdvReac Type Severity Reaction Status Date / Time codeine Allergy Mild hives/rash/ Verified 01/24/25 00:36 haulucinati ons PFSH ED PFS: Medical History Urinary retention with incomplete bladder emptying Chondromalacia, left knee Knee joint cyst Social History Smoking and tobacco/nicotine status: unknown if used tobacco/nicotine Second hand smoke exposure: No Alcohol intake: unknown Substance/Drug Use: never Adopted: No Caregiver/support person: No Lives independently: Yes Household members: family Housing: House Marital status: Unknown Pets and animals: Yes Physical Exam Const: COMMON NORMALS: no acute distress, patient oriented x3 and alert HENMT: COMMON NORMALS: normocephalic and atraumatic HEAD & SCALP: normocephalic and atraumatic Eye: COMMON NORMALS: Equal, round and reactive pupils present, EOMs intact bilaterally and no scleral icterus PUPIL: Yes Equal, round and reactive pupils present Resp: COMMON NORMALS: normal respiratory effort and No retractions Cardio: COMMON NORMALS: regular rate, regular rhythm and No murmurs present (Cardio) RATE: regular rate RHYTHM: regular rhythm GI: COMMON NORMALS: Normal to inspection, nondistended, normoactive bowel sounds present, Soft to palpation and non-tender PALPATION: Yes Soft to palpation Neuro: COMMON NORMALS: patient oriented x3 SENSORIUM/ORIENTATION: Yes alert Skin: COMMON NORMALS: no rashes or lesions noted GENERAL SKIN EXAM: no rashes or lesions noted Course Vital Signs: Vital signs: Vital Signs Temperature 97.7 F 01/24/25 00:33 Pulse Rate 82 01/24/25 01:57 Respiratory Rate 16 01/24/25 01:57 Blood Pressure 127/68 01/24/25 01:57 Pulse Oximetry 99 01/24/25 01:57 Oxygen Delivery Me thod Room Air 01/24/25 00:33 MDM - Female Medical Decision Making Patient remained hemodynamically stable 30-day course. Urinalysis was performed showing no evidence of UTI. Culture will be sent. She is concerned that she may have come into early and that it has she waited several days urinalysis within show infection. I offered that I can prescribe her a course of Macrobid but asked that she wait a day or 2 to make sure symptoms do not resolve spontaneously. She agrees to the plan and will be discharged in stable condition. I do not suspect any other emergent process warranting further workup at this time. Lab Data Laboratory Results Urine Color Yellow (Yellow) 01/24/25 00:43 Urine Appearance Clear (CLEAR) 01/24/25 00:43 Urine pH 8.5 (5-7) A 01/24/25 00:43 Ur Specific [place] 1.010 (1.005-1.030) 01/24/25 00:43 Urine Protein Negative (Negative) 01/24/25 00:43 Urine Glucose (UA) Negative (Normal) 01/24/25 00:43 Urine Ketones Negative (Negative) 01/24/25 00:43 Urine Blood Negative (Negative) 01/24/25 00:43 Urine Nitrate Negative (Negative) 01/24/25 00:43 Urine Bilirubin Negative (Negative) 01/24/25 00:43 Urine Urobilinogen 0.2 mg/dL (Negative) 01/24/25 00:43 Ur Leukocyte Esterase Negative (Negative) 01/24/25 00:43 Urine RBC 0-2 /hpf (0-2) 01/24/25 00:43 Urine WBC 0-5 /hpf (0-5) 01/24/25 00:43 Ur Squamous Epith Cells 0-5 /hpf (0-5) 01/24/25 00:43 Amorphous Sediment Not Reportable 01/24/25 00:43 Urine Bacteria None seen /hpf (NONE) 01/24/25 00:43 Hyaline Casts 0-4 /lpf H 01/24/25 00:43 No radiology studies performed this visit Discharge Plan Discharge Patient Disposition: Home Clinical Impression: Dysuria Condition: Stable Prescriptions: New nitrofurantoin monohyd/m-cryst [Macrobid] 100 mg capsule 100 mg PO BID 5 Days Qty: 10 0RF Rx Instructions: must administer with a meal/food No Action semaglutide 0.25 mg or 0.5 mg (2 mg/3 mL) pen injector 0.25 mg SUBCUT ONCE Qty: 3 0RF Rx Instructions: inject 0.25 mg once weekly for four weeks then increase to 0.5 mg once weekly for four weeks sulfamethoxazole-trimethoprim [Bactrim DS] 800-160 mg tablet 1 tab PO BID Qty: 10 0RF (DME) INFORMATION TECHNOLOGY INSTRUCTOR BRACE-LEFT See Rx Instructions .Route .MEDSUPPLY Qty: 1 0RF Rx Instructions: As directed lidocaine-epinephrine 2 %-1:100,000 solution 4 ml Infiltration ONCE Qty: 4 0RF progesterone micronized 200 mg capsule See Rx Instructions .ROUTE .COMPLEX Qty: 90 2RF Dose Instruction: TAKE 1 CAPSULE BY MOUTH AT BEDTIME Rx Instructions: TAKE 1 CAPSULE BY MOUTH AT BEDTIME estradiol 1 mg tablet See Rx Instructions .ROUTE .COMPLEX Qty: 90 2RF Dose Instruction: TAKE 1 AND A HALF TABLETS BY MOUTH EVERYDAY AT BEDTIME Rx Instructions: TAKE 1 AND A HALF TABLETS BY MOUTH EVERYDAY AT BEDTIME Discharge Orders: Discharge ED (Routine); Ordered 01/24/25 Ordered By: Mj Oakley Referrals: Jesus Love MD [Primary Care Provider] - Discharge Diet: Usual diet Discharge Activity: Resume usual activity Patient Instructions: Dysuria (ED) Print Language: Syriac Coding Level of Care Code ED Crankshaft Straightener for Tessie Morrow
--- NOTE | 2025-01-24 16:55 | PC.NURSE ---
Pt seen in ER last noc. PT was told that [facility]. [facility] per pt request as it had not previously been transmitted.
== END 2025-01-24 01:39 | disposition home or self-care (01) ==
PROVIDERS: Physician Assistant; Emergency Provider Student in an Organized Health Care Education/Training Program; PCP Family Medicine
DX: R30.0 Dysuria (principal)
CPT/HCPCS: 81001; 87077; 87086; 87186; 99283; J9999

== ENCOUNTER 2025-02-12 10:12 | Outpatient (CLI) | payer OTHER, SELFPAY ==
--- NOTE | 2025-02-12 15:00 | US_ITS ---
WS: [id number] ULTRASOUND BREAST RIGHT TECHNIQUE: Ultrasound right breast focused area of concern. CLINICAL INFORMATION: f/u on mass COMPARISON: 11/16/2024 FINDINGS: Previously described breast abscess has significantly decreased in size since 11/16/2024. Today this measures approximately 2.5 x 1.4 x 1.4 cm with internal debris. This is at the 9 o'clock position 5 cm from the nipple. Previously this measured approximately 5.2 x 2.5 x 1.6 cm. Recommend continued ultrasound follow-up to after completion of antibiotics to ensure resolution. US/US breast RT limited* [id number] IMPRESSION: See description above
== END 2025-02-12 10:13 | disposition home or self-care (01) ==
LOC: RAD 10:14
PROVIDERS: PCP Family Medicine; Visit Provider Family Medicine
DX: N61.1 Abscess of the breast and nipple (principal)
CPT/HCPCS: 76642

== ENCOUNTER 2025-02-14 17:49 | Emergency (ER) | payer OTHER, SELFPAY ==
[2025-02-14 17:53] VITALS: BP 153/99; PULSE 76; RESP 16; TEMP 36.7; O2SAT 99; BMI 30.2
[2025-02-14 18:07] VITALS: BP 157/87; PULSE 78; O2SAT 98
--- NOTE | 2025-02-14 18:11 | ED_ITS ---
HPI - Neck Pain/Injury 2 General: Chief Complaint: Neck Pain/Injury Stated Complaint: neck pain Time Seen by Provider: 02/14/25 18:00 Source: patient Mode of arrival: ambulatory Limitations: no limitations History of Present Illness: Patient is a 50-year-old female presenting to the emergency department with 6 months of right neck pain. Patient describes it as a constant burning and electricity that radiates up to her ear and down. She reports that the jaw pain worsens with chewing and she has been on a soft diet for the last couple of months. No difficulty with speaking/swallowing. She denies any decreased range of motion, sensory, or changes in strength to her neck or shoulders. She reports that pain is not reproducible with palpation. No edema. No overlying erythema/warmth to area. She first thought it was dental related but ended up having a root canal and eventually tooth was puled without any improvement in her pain. She has been seeing her PCP Dr. Love who requested outpatient CT scan but this could not get scheduled until May. 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 #1 ea 04/12/23 semaglutide 0.25 mg or 0.5 mg (2 0.25 mg (0.368 mL) MEDELLIN BCUT ONCE #3 10/19/24 mg/3 mL) subcutaneous pen injector mL sulfamethoxazole 800 1 tab PO BID #10 tabs mg-trimethoprim 160 mg tablet (Bactrim DS) estradiol 1 mg tablet See Rx Instructions .Route 0 12/25/24 .COMPLEX #90 tabs progesterone micronized 200 mg See Rx Instructions .Ro curtis 12/25/24 capsule .COMPLEX #90 caps hydrocodone 5 mg-acetaminophen 325 1 tab PO Q8H PRN pa in 2 weeks #30 02/13/25 mg tablet tabs Allergies Allergy/AdvReac Type Severity Reaction Status Date / Time codeine Allergy Mild hives/rash/ Verified 02/14/25 17:58 rochelle ons Review of Systems 2 Const: Denies: fever(s), chills, body aches, change in appetite or change in weight Eyes: Denies: change in vision ENMT: Reports: ear or mastoid pain; Denies: throat pain, uvular edema, enlarged tonsils, odynophagia, hoarseness, mouth pain, swelling of lips/tongue, dental pain, ear discharge, change in hearing, tinnitus, disequilibrium, nasal discharge, nasal congestion or sinus pain Card: Denies: chest pain or palpitations Resp: Denies: dyspnea GI: Denies: nausea or vomiting Musc: Reports: neck pain (Right-sided); Denies: back pain, extremity pain, extremity swelling, joint pain, joint swelling, limited range of motion or muscle weakness Skin/Breast: Denies: rash, pruritus, erythema, skin tenderness or new lesions Neuro: Denies: headache(s) or sensory changes PFSH ED 2 PFSH: Medical History Urinary retention with incomplete bladder emptying Chondromalacia, left knee Knee joint cyst Social History Smoking and tobacco/nicotine status: never used tobacco/nicotine Second hand smoke exposure: No Alcohol intake: unknown Substance/Drug Use: never Adopted: No Caregiver/support person: No Lives independently: Yes Household members: family Housing: House Marital status: Unknown Pets and animals: Yes Physical Exam 2 Const: COMMON NORMALS: no acute distress, average body habitus, patient oriented x3, no limitations, healthy appearing and alert GENERAL APPEARANCE: cooperative, well kempt and well developed HENMT: COMMON NORMALS: normocephalic, atraumatic, hearing grossly normal bilaterally and external ears normal HEAD & SCALP: normocephalic and atraumatic FACE & SINUS: normal facial exam; no TMJ findings EXTERNAL EAR: Yes external ears normal, Yes mastoids normal and Yes no periauricular adenopathy MOUTH: Normal oral and palatal mucosa present; no TMJ findings THROAT: no uvular edema Eye: COMMON NORMALS: Equal, round and reactive pupils present, EOMs intact bilaterally and conjunctivae normal CONJUNCTIVA: Yes conjunctivae normal P UPIL: Yes Equal, round and reactive pupils present Neck/C-Spine: COMMON NORMALS: full ROM, no lymphadenopathy, supple, no meningeal signs, no JVD and Thyroid normal GENERAL: Yes normal visual inspection and Yes trachea midline THYROID: Thyroid normal CERVICAL SPINE: Yes cervical ROM normal Lymph: LYMPHATIC: no lymphadenopathy noted Chest: COMMONS NORMALS: normal inspection of the chest and normal palpation of entire chest wall Resp: COMMON NORMALS: normal respiratory effort, No retractions, No use of accessory muscles and clear to auscultation bilaterally AUSCULTATION: clear to auscultation bilaterally Cardio: COMMON NORMALS: no JVD, regular rate, regular rhythm, S1 normal heart sound present and S2 normal heart sound present RATE: regular rate RHYTHM: regular rhythm HEART SOUNDS: S1 normal heart sound present and S2 normal heart sound present Neuro: COMMON NORMALS: patient oriented x3 SENSORIUM/ORIENTATION: Yes alert MENINGEAL SIGNS: Yes no meningeal signs CRANIAL NERVES: Yes CN normal except as noted SPEECH: speech normal Psych: APPEARANCE: Yes well kempt Course 2 Vital Signs: Vital signs: Vital Signs Temperature 98.0 F 02/14/25 17:53 Pulse Rate 82 02/14/25 19:15 Respiratory Rate 16 02/14/25 19:15 Blood Pressure 163/92 02/14/25 19:15 Pulse Oximetry 98 02/14/25 19:15 Oxygen Delivery Me thod Room Air 02/14/25 19:15 MDM - Neck Pain/Injury Medical Decision Making Patient clinically appears in no acute distress. Blood work is unremarkable. Vital signs are stable. Her primary care had requested CT neck with contrast but this reportedly is not scheduled till 05/13. This was completed today. They did see some findings regarding her right mandibular molar that she had root canal performed/extracted. Unknown significance and unknown whether this is contributory to her symptoms. Ultimately I feel emergent life-threatening pathology has been ruled out and she is stable to follow-up with primary care. Medical Records I reviewed the patient's medical records. Lab Data I reviewed the patient's lab results. 02/14/25 18:46 02/14/25 19:[address] 02/14/25 18:36 IMPRESSION: 1. Absence of the molar tooth mid to posterior right mandible attributed to previous root canal with the clinical history. There is some associated soft tissue low-attenuation in this region that could reflect edema or inflammation. Small focus of air density may be related to air within the defect of absent tooth with prior root canal, as no discrete or defined or enhancing fluid collection is seen to indicate abscess. Inflammation/infection at this level not excluded, though. 2. No acute findings otherwise. Laboratory Results WBC 8.00 10^3/uL (3.29-11.43) 02/14/25 18:46 RBC 4.94 10^6/uL (3.85-5.65) 02/14/25 18:46 Hgb 14.60 g/dL (11.27-16.99) 02/14/25 18:46 Hct 44.2 % (36-47) 02/14/25 18:46 MCV 89.5 fl (85-98) 02/14/25 18:46 MCH 29.6 pg (27-33) 02/14/25 18:46 MCHC 33.0 g/dL (30-55) 02/14/25 18:46 RDW 12.4 % (12.1-15.1) 02/14/25 18:46 Plt Count 288 10^3/cmm (157-399) 02/14/25 18:46 MPV 11.5 fL (7.4-10.4) H 02/14/25 18:46 Neut % (Auto) 73.5 % 02/14/25 18:46 Lymph % (Auto) 20.4 % 02/14/25 18:46 [place] % (Auto) 5.1 % 02/14/25 18:46 Eos % (Auto) 0.3 % 02/14/25 18:46 Baso % (Auto) 0.4 % 02/14/25 18:46 Neut # (Auto) 5.89 10^3/uL (1.8-7.7) 02/14/25 18:46 Lymph # (Auto) 1.6 10^3/uL (0.8-4.8) 02/14/25 18:46 [place] # (Auto) 0.4 10^3/uL (0.2-0.9) 02/14/25 18:46 Eos # (Auto) 0.0 10^3/uL (0.0-0.8) 02/14/25 18:46 Baso # (Auto) 0.0 10^3/uL (0.0-0.1) 02/14/25 18:46 Nucleated RBC % (auto) 0 % 02/14/25 18:46 Nucleated RBCs # 0.0 /100WBC 02/14/25 18:46 Sodium 134 mmol/L (136-145) L 02/14/25 19:40 Potassium 4.2 mmol/L (3.5-5.1) 02/14/25 19:40 Chloride 99 mmol/L (98-107) 02/14/25 19:40 Carbon Dioxide 24 mmol/L (22-29) 02/14/25 19:40 Anion Gap 15.2 (5-19) 02/14/25 19:40 BUN 12 mg/dL (6-20) 02/14/25 19:40 Creatinine 0.6 mg/dL (0.5-0.9) 02/14/25 19:40 GFR Calculation 106.7 mL/min (90-130) 02/14/25 19:40 Glucose 88 mg/dL (65-115) 02/14/25 19:40 Calculated Osmolality 277 mOsm/kg (285-295) L 02/14/25 19:40 Calcium 9.0 mg/dL (8.5-10.5) 02/14/25 19:40 Total Bilirubin 0.3 mg/dL (0.15-1.2) 02/14/25 19:40 AST 25 U/L (0-32) 02/14/25 19:40 ALT 34 U/L (0-33) H 02/14/25 19:40 Alkaline Phosphatase 68 U/L (35-105) 02/14/25 19:40 Total Protein 7.1 g/dL (6.6-8.7) 02/14/25 19:40 Albumin 4.0 g/dL (3.5-5.2) 02/14/25 19:40 Globulin 3.1 g/dL (1.3-4.6) 02/14/25 19:40 All radiology interpretation(s) finalized by discharge Discharge Plan Discharge Patient Disposition: Home Clinical Impression: Neck pain on right side Condition: Stable Prescriptions: No Action semaglutide 0.25 mg or 0.5 mg (2 mg/3 mL) pen injector 0.25 mg SUBCUT ONCE Qty: 3 0RF Rx Instructions: inject 0.25 mg once weekly for four weeks then increase to 0.5 mg once weekly for four weeks sulfamethoxazole-trimethoprim [Bactrim DS] 800-160 mg tablet 1 tab PO BID Qty: 10 0RF hydrocodone-acetaminophen 5-325 mg tablet 1 tab PO Q8H PRN (Reason: pain) 14 Days Qty: 30 0RF (DME) 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 See Rx Instructions .Route .MEDSUPPLY Qty: 1 0RF Rx Instructions: As directed lidocaine-epinephrine 2 %-1:100,000 solution 4 ml Infiltration ONCE Qty: 4 0RF progesterone micronized 200 mg capsule See Rx Instructions .ROUTE .COMPLEX Qty: 90 2RF Dose Instruction: TAKE 1 CAPSULE BY MOUTH AT BEDTIME Rx Instructions: TAKE 1 CAPSULE BY MOUTH AT BEDTIME estradiol 1 mg tablet See Rx Instructions .ROUTE .COMPLEX Qty: 90 2RF Dose Instruction: TAKE 1 AND A HALF TABLETS BY MOUTH EVERYDAY AT BEDTIME Rx Instructions: TAKE 1 AND A HALF TABLETS BY MOUTH EVERYDAY AT BEDTIME Discharge Orders: Discharge ED (Routine); Ordered 02/14/25 Ordered By: Ashley Montoya Referrals: Jesus Love MD [Primary Care Provider, Family Practice] Activity Restrictions/Additional Instructions: As we discussed, please follow-up with Dr. Love for further evaluation and plan going forward. Print Language: South Sudanese Coding Level of Care Code ED Promotions Specialist for Tessie Morrow
--- NOTE | 2025-02-14 18:36 | CTR_ITS ---
PROCEDURE INFORMATION: Exam: CT Neck With Contrast Exam date and time: 02/14/2025 7:26 PM Age: 50 years old Clinical indication: Other: Right mandibular/neck pain; Root canal x2 RT side, 2 yrs ago and 6 mon ago; Additional info: R sided neck pain TECHNIQUE: Imaging protocol: Computed tomography of the neck with contrast. Radiation optimization: All CT scans at this facility use at least one of these dose optimization techniques: automated exposure control; mA and/or kV adjustment per patient size (includes targeted exams where dose is matched to clinical indication); or iterative reconstruction. Contrast material: OMNIPAQUE 350; Contrast volume: 100 ml; Contrast route: INTRAVENOUS (IV); COMPARISON: CR XR chest 2V* [id number] 12/02/2020 5:48 PM RADIATION DOSE METRICS: Total DLP (mGy-cm): 213.59 FINDINGS: Salivary glands: Unremarkable. Glands are normal in size. Teeth: Absence of a molar tooth mid to posterior right mandible attributed to previous root canal with the clinical history. A small amount of air density is seen at this level, which may be related to previous root canal with absence of tooth at this level. Some component of inflammation not excluded as ill-defined low-attenuation soft tissue edema suggested in this region as well. No discrete or defined or enhancing fluid collection is seen to indicate an abscess. Pharynx: Unremarkable. No significant tonsillar enlargement. Larynx: Unremarkable. Epiglottis is normal. Thyroid: Normal. No enlarged or calcified nodules. Trachea: Visualized trachea is unremarkable. Lungs: Unremarkable as visualized. Lymph nodes: Unremarkable. No lymphadenopathy. Bones/joints: Bone windows demonstrate spondylotic change with mild degenerative disc disease C5 through C7 levels. Soft tissues: No significant soft tissue abnormality about the neck. CT/CT neck w con* [id number] IMPRESSION: 1. Absence of the molar tooth mid to posterior right mandible attributed to previous root canal with the clinical history. There is some associated soft tissue low-attenuation in this region that could reflect edema or inflammation. Small focus of air density may be related to air within the defect of absent tooth with prior root canal, as no discrete or defined or enhancing fluid collection is seen to indicate abscess. Inflammation/infection at this level not excluded, though. 2. No acute findings otherwise.
[2025-02-14 19:05] LABS: Basophils % 0.4 %; Eosinophils % 0.3 %; Hematocrit 44.2 % (36-47); Lymphocytes # 1.6 10^3/uL (0.8-4.8); Lymphocytes % 20.4 %; Mean Corpuscular Hemoglobin 29.6 pg (27-33); Mean Corpuscular Volume 89.5 fl (85-98); Mean Platelet Volume 11.5 fL (7.4-10.4); Monocytes # 0.4 10^3/uL (0.2-0.9); Monocytes % 5.1 %; Neutrophils # 5.89 10^3/uL (1.8-7.7); Neutrophils % 73.5 %; Nucleated Red Blood Cells % 0 %; Platelet Count 288 10^3/cmm (157-399); Red Blood Count 4.94 10^6/uL (3.85-5.65); Red Cell Distribution Width 12.4 % (12.1-15.1)
[2025-02-14 19:15] VITALS: BP 163/92; PULSE 82; RESP 16; O2SAT 98
[2025-02-14] MEDS: iohexol 350 mg/mL 500 mL Btl (per mL) IV (19:30)
[2025-02-14] MEDS: ketorolac 30 mg/mL INJ IVP (20:21)
[2025-02-14 20:58] LABS: Alanine Aminotransferase 34 U/L (0-33); Alkaline Phosphatase 68 U/L (35-105); Anion Gap 15.2 (5-19); Aspartate Amino Transferase 25 U/L (0-32); Blood Urea Nitrogen 12 mg/dL (6-20); Carbon Dioxide 24 mmol/L (22-29); Chloride 99 mmol/L (98-107); Creatinine Clr Calc Pharmacy 130.2921; Globulin 3.1 g/dL (1.3-4.6); Glomerular Filtration Rate 106.7 mL/min (90-130); Glucose 88 mg/dL (65-115); Osmolality Calculated 277 mOsm/kg (285-295); Potassium 4.2 mmol/L (3.5-5.1); Sodium 134 mmol/L (136-145); Total Bilirubin 0.3 mg/dL (0.15-1.2); Total Protein 7.1 g/dL (6.6-8.7)
[2025-02-14 21:37] VITALS: BP 162/94; PULSE 67; RESP 16; O2SAT 96
== END 2025-02-14 21:11 | disposition home or self-care (01) ==
PROVIDERS: Emergency Provider Physician Assistant; PCP Family Medicine
DX: M54.2 Cervicalgia (principal)
CPT/HCPCS: 36415; 70491; 80053; 85025; 96374; 99285; J1885

== ENCOUNTER → 2025-04-19 09:44 | Outpatient (BNVA) | payer OTHER, SELFPAY | PROVIDERS: PCP Family Medicine; Visit Provider Family Medicine | DX: R30.0 Dysuria (principal); R82.71 Bacteriuria | CPT/HCPCS: 81000; 87077; 87086; 87184 ==

== ENCOUNTER 2025-05-14 12:21 | Outpatient (CLI) | payer OTHER, SELFPAY ==
--- NOTE | 2025-05-14 12:45 | US_ITS ---
WS: [id number] ULTRASOUND BREAST RIGHT TECHNIQUE: Ultrasound right breast focused area of concern. CLINICAL INFORMATION: f/u COMPARISON: 02/12/25 and 11/16/2024 FINDINGS: Continued improvement of the previously described breast abscess which has decreased in size compared to the prior studies. Abscess at the 9:00 position 5 cm from the nipple has essentially resolved. Small amount of residual complex fluid measuring approximately 1.3 x 0.8 x 1.3 cm at the 9 o'clock position 1 cm from the nipple. Associated internal debris. Previously this measured approximately 2.5 x 1.4 x 1.4 cm. Recommend continued ultrasound follow-up after completion of antibiotics to ensure resolution. US/US breast RT limited* [id number] IMPRESSION: See discussion above
== END 2025-05-14 12:22 | disposition home or self-care (01) ==
LOC: RAD 12:22
PROVIDERS: PCP Family Medicine; Visit Provider Family Medicine
DX: N61.1 Abscess of the breast and nipple (principal)
CPT/HCPCS: 76642

== ENCOUNTER 2025-05-29 23:39 | Emergency (ER) | payer OTHER, SELFPAY ==
[2025-05-29 23:54] VITALS: BP 143/91; PULSE 66; RESP 17; TEMP 36.8; O2SAT 100; BMI 31.3
--- OUTSIDE RECORDS SUMMARY | 2025-05-29 23:55 | XMS_ITS ---
Author Name LUIS DANIEL GALLEGO Address [address] [place] [address] Phone Organization [employer] Address [address] [place] [address] Phone Care Team Providers Care Cone Operator Name Role Phone MD LUIS DANIEL GALLEGO Unavailable ALLERGIES, ADVERSE REACTIONS AND ALERTS Allergy Name Allergy Date Allergy Status Allergy Severity Allergy Reaction Codeine, [RxNorm: 2670] 05/10/2025 Current MEDICATIONS RxNorm Brand Name Prescription Ordered Value Order Unit Start Date Date Status Fill Status Indications [id number] gabapenti n 600 mg tablet SIG: gabapentin 600 mg oral tablet, 30 days, Dispense #90 Tablet, 6 Refills, Directions: One po TID 90 tablet 2024 Current [id number] oxcarbaze pine 300 mg tablet SIG: oxcarbazepine 300 mg oral tablet, 30 days, Dispense #60 Tablet, 6 Refills, Directions: 1/2 tab po BID x 1 week, then 1 tab po BID 60 tablet 2024 Current PROBLEMS Problem Code Problem Description Problem Status Problem Da te Problem End Date 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 G50.0-Trigeminal neuralgia Trigeminal neuralgia Current 05/10/2025 PROCEDURES Procedure Description Date Notes NO PROCEDURES PERFORMED ASSESSMENTS Assessment None PLAN OF TREATMENT Assessment Planned Activity LOINC Planned Frederic e None CONSULTATION NOTE Note Author Date None HISTORY AND PHYSICAL NOTE Note Author Date None PROGRESS NOTE Note Author Date None DISCHARGE SUMMARY Note Author Date None CHIEF COMPLAINT AND REASON FOR VISIT FUNCTIONAL STATUS Functional or Cognitive Find ing None MENTAL STATUS Cognitive Finding None ENCOUNTERS Encounter Type Provider Diagnoses Start Date Location Disc harged to None SOCIAL HISTORY Social Status Observation Unknown if ever smoked Sex: Female CARE TEAM INFORMATION Cone Operator Provider ID Role Location Phone LUIS DANIEL GALLEGO [phone] [address], [place] [address] INSURANCE PROVIDERS Payer Name Policy type / Coverage type Covered republican ID Policy Cm [employer] Private Health Insurance [id number] KAT [place]
--- NOTE | 2025-05-30 | ECG_ITS ---
[facility] Test Date: 2025-05-30 Pat Name: Bernice Loyd Department: Room: Gender: Female Research Geneticist: : 1975 Requested By: Jermain Martínez Order Number: [id number] Claude MD: Maxime Jain M.D. Measurements Intervals [place] Rate: 68 P: 34 [place]: 183 QRS: 70 QRSD: 89 T: 28 QT: 428 QTc: 457 Interpretive Statements SINUS RHYTHM No previous ECG available for comparison Electronically Signed On 06-02-2025 08:54:15 CDT by Maxime Jain M.D. [email or web address] [id number]
--- NOTE | 2025-05-30 | ED_ITS ---
HPI - Syncope 2 General: Chief Complaint: Syncope Stated Complaint: New meds, mouth numb, Passed out, cold sweats Time Seen by Provider: 05/29/25 23:48 History of Present Illness: Patient comes in with concerns for side effects from her new medication. States she was started on pregabalin today and took her first dose this evening. States she woke up in the middle the night to use the restroom, and was not feeling well. States she felt like she had to talk her body into how to move and use the restroom. States when she got up after using the restroom she became lightheaded, felt like her mouth was dry, and then had a syncopal event. She denies chest pain, vomiting, diarrhea. Denies any shortness of breath. All of her symptoms are listed as side effects of the pregabalin. She feels much better at this time. Will check labs, EKG, and reassess. 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 #1 ea 04/12/23 progesterone micronized 200 mg See Rx Instructions .Ro curtis 12/25/24 capsule .COMPLEX #90 caps prednisone 20 mg tablet 20 mg PO DAILY #5 tabs 04/21 hydrocodone 5 mg-acetaminophen 325 1 tab PO Q8H PRN pa in 4 weeks #60 05/28/25 mg tablet tabs pregabalin 150 mg capsule (Lyrica) 150 mg PO DAILY #30 caps 05/28/25 Allergies Allergy/AdvReac Type Severity Reaction Status Date / Time codeine Allergy Mild hives/rash/ Verified 04/23/25 11:36 rochelle ons Review of Systems 2 Const: Denies: fever(s) or body aches Eyes: Denies: change in vision or blurry vision Card: Denies: chest pain or palpitations Resp: Denies: dyspnea or productive cough GI: Denies: abdominal pain, nausea or vomiting Neuro: Denies: headache(s) PFSH ED 2 PFSH: Medical History (Updated 05/30/25 @ 00:58 by Jermain Martínez MD) Urinary retention with incomplete bladder emptying Chondromalacia, left knee Knee joint cyst Social History Smoking and tobacco/nicotine status: never used tobacco/nicotine Second hand smoke exposure: No Alcohol intake: unknown Substance/Drug Use: never Adopted: No Caregiver/support person: No Lives independently: Yes Household members: family Housing: House Marital status: Unknown Pets and animals: Yes Physical Exam 2 Const: COMMON NORMALS: no acute distress, patient oriented x3, healthy appearing and alert HENMT: COMMON NORMALS: normocephalic and atraumatic HEAD & SCALP: n ormocephalic and atraumatic Eye: COMMON NORMALS: Equal, round and reactive pupils present and EOMs intact bilaterally PUPIL: Yes Equal, round and reactive pupils present Neck/C-Spine: COMMON NORMALS: full ROM and supple Resp: COMMON NORMALS: normal respiratory effort, No retractions and No use of accessory muscles Cardio: COMMON NORMALS: regular rate and regular rhythm RATE: regular rate RHYTHM: regular rhythm GI: COMMON NORMALS: Normal to inspection, nondistended, normoactive bowel sounds present, Soft to palpation and non-tender PALPATION: Yes Soft to palpation Extremity: COMMON NORMALS: normal to inspection and full ROM Neuro: COMMON NORMALS: patient oriented x3 SENSORIUM/ORIENTATION: Yes alert Psych: COMMON NORMALS: mental status grossly normal and cooperative Course 2 Vital Signs: Vital signs: Vital Signs Temperature 98.2 F 05/29/25 23:54 Pulse Rate 69 05/30/25 00:28 Respiratory Rate 15 05/30/25 00:28 Blood Pressure 141/90 05/30/25 00:28 Pulse Oximetry 100 05/30/25 00:28 Oxygen Delivery Me thod Room Air 05/30/25 00:28 MDM - Syncope Medical Decision Making On reassessment I talked with the patient about her test results. Her hemoglobin is normal at 13. Her white blood cell count was normal. Her troponin, potassium were normal. Her sodium was mildly low at 129. I encouraged her to follow-up with her PCP to recheck her sodium this week. Will have her contact her doctor later this morning to discuss whether or not she should continue the Lyrica. Will discharge at this time with precautions to return for worsening or changing symptoms. Lab Data 05/30/25 00:20 05/30/25 00:20 Laboratory Results WBC 4.49 10^3/uL (3.29-11.43) 05/30/25 00:20 RBC 4.31 10^6/uL (3.85-5.65) 05/30/25 00:20 Hgb 13.00 g/dL (11.27-16.99) 05/30/25 00:20 Hct 36.9 % (36-47) 05/30/25 00:20 MCV 85.6 fl (85-98) 05/30/25 00:20 MCH 30.2 pg (27-33) 05/30/25 00:20 MCHC 35.2 g/dL (30-55) 05/30/25 00:20 RDW 11.8 % (12.1-15.1) L 05/30/25 00:20 Plt Count 226 10^3/cmm (157-399) 05/30/25 00:20 MPV 10.8 fL (7.4-10.4) H 05/30/25 00:20 Neut % (Auto) 44.3 % 05/30/25 00:20 Lymph % (Auto) 42.8 % 05/30/25 00:20 [place] % (Auto) 8.0 % 05/30/25 00:20 Eos % (Auto) 4.2 % 05/30/25 00:20 Baso % (Auto) 0.7 % 05/30/25 00:20 Neut # (Auto) 1.99 10^3/uL (1.8-7.7) 05/30/25 00:20 Lymph # (Auto) 1.9 10^3/uL (0.8-4.8) 05/30/25 00:20 [place] # (Auto) 0.4 10^3/uL (0.2-0.9) 05/30/25 00:20 Eos # (Auto) 0.2 10^3/uL (0.0-0.8) 05/30/25 00:20 Baso # (Auto) 0.0 10^3/uL (0.0-0.1) 05/30/25 00:20 Nucleated RBC % (auto) 0 % 05/30/25 00:20 Nucleated RBCs # 0.0 /100WBC 05/30/25 00:20 Sodium 129 mmol/L (136-145) L 05/30/25 00:20 Potassium 3.8 mmol/L (3.5-5.1) 05/30/25 00:20 Chloride 94 mmol/L (98-107) L 05/30/25 00:20 Carbon Dioxide 26 mmol/L (22-29) 05/30/25 00:20 Anion Gap 12.8 (5-19) 05/30/25 00:20 BUN 10 mg/dL (6-20) 05/30/25 00:20 Creatinine 0.6 mg/dL (0.5-0.9) 05/30/25 00:20 GFR Calculation 106.7 mL/min (90-130) 05/30/25 00:20 Glucose 126 mg/dL (65-115) H 05/30/25 00:20 Calculated Osmolality 269 mOsm/kg (285-295) L 05/30/25 00:20 Calcium 8.5 mg/dL (8.5-10.5) 05/30/25 00:20 Troponin T Baseline < 6 ng/L (0-10) 05/30/25 00:20 No radiology studies performed this visit Discharge Plan Discharge Patient Disposition: Home Clinical Impression: Medication side effect Condition: Stable Prescriptions: No Action (DME) FLIGHT COMMUNICATIONS OFFICER 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-LEFT See Rx Instructions .Route .MEDSUPPLY Qty: 1 0RF Rx Instructions: As directed lidocaine-epinephrine 2 %-1:100,000 solution 4 ml Infiltration ONCE Qty: 4 0RF oxcarbazepine 300 mg tablet 300 mg PO BID hydrocodone-acetaminophen 5-325 mg tablet 1 tab PO Q8H PRN (Reason: pain) 28 Days Qty: 60 0RF pregabalin [Lyrica] 150 mg capsule 150 mg PO DAILY Qty: 30 5RF progesterone micronized 200 mg capsule See Rx Instructions .ROUTE .COMPLEX Qty: 90 2RF Dose Instruction: TAKE 1 CAPSULE BY MOUTH AT BEDTIME Rx Instructions: TAKE 1 CAPSULE BY MOUTH AT BEDTIME prednisone 20 mg tablet 20 mg PO DAILY Qty: 5 0RF Rx Instructions: take with food. Discharge Orders: Discharge ED (Routine); Ordered 05/30/25 Ordered By: Jermain Martínez Referrals: Jesus Love MD [Primary Care Provider, Family Practice] Patient Instructions: Pregabalin (By mouth) (Maryam Francisco), Patient Portal & Adam Instructions Print Language: Lithuanian Coding Level of Care Code ED Family Manager for Chg Cristhian
[2025-05-30 00:28] VITALS: BP 141/90; PULSE 69; RESP 15; O2SAT 100
[2025-05-30 00:31] LABS: Hematocrit 36.9 % (36-47); Hemoglobin 13.00 g/dL (11.27-16.99); Mean Corpuscular HGB Conc 35.2 g/dL (30-55); Mean Corpuscular Hemoglobin 30.2 pg (27-33); Mean Corpuscular Volume 85.6 fl (85-98); Nucleated Red Blood Cells % 0 %; Platelet Count 226 10^3/cmm (157-399); Red Blood Count 4.31 10^6/uL (3.85-5.65); White Blood Count 4.49 10^3/uL (3.29-11.43)
[2025-05-30 00:49] LABS: Anion Gap 12.8 (5-19); Blood Urea Nitrogen 10 mg/dL (6-20); Calcium 8.5 mg/dL (8.5-10.5); Carbon Dioxide 26 mmol/L (22-29); Chloride 94 mmol/L (98-107); Creatinine Clr Calc Pharmacy 132.5910; Glucose 126 mg/dL (65-115); Osmolality Calculated 269 mOsm/kg (285-295); Potassium 3.8 mmol/L (3.5-5.1); Sodium 129 mmol/L (136-145)
[2025-05-30 00:50] LABS: Troponin(5th) Baseline < 6 ng/L (0-10)
[2025-05-30 01:24] VITALS: BP 119/82; PULSE 70; RESP 15; O2SAT 99
== END 2025-05-30 01:23 | disposition home or self-care (01) ==
PROVIDERS: Emergency Provider Emergency Medicine; PCP Family Medicine
DX: R55 Syncope and collapse (principal); T50.995A Adverse effect of other drugs, medicaments and biological substances, initial encounter; X58.XXXA Exposure to other specified factors, initial encounter
CPT/HCPCS: 36415; 80048; 84484; 85025; 93005; 96360; 99284; J7040

== ENCOUNTER → 2025-05-31 07:22 | Outpatient (BNVA) | payer OTHER, SELFPAY | PROVIDERS: PCP Family Medicine; Visit Provider Family Medicine | DX: Z00.00 Encounter for general adult medical examination without abnormal findings (principal); Z51.81 Encounter for therapeutic drug level monitoring; T88.7XXA Unspecified adverse effect of drug or medicament, initial encounter; Z79.899 Other long term (current) drug therapy; V70.0XXA Driver of bus injured in collision with pedestrian or animal in nontraffic accident, initial encounter; V78.9XXA Unspecified occupant of bus injured in noncollision transport accident in traffic accident, initial encounter; X58.XXXA Exposure to other specified factors, initial encounter | CPT/HCPCS: 80053; 80183; 85025 ==